=== PATIENT | female | born 1995 | race Caucasian/White ===

== ENCOUNTER 2017-06-06 15:23 | Emergency (ER) | payer OTHER ==
[~2017-06-06] VITALS: Ht 167.6 cm; Wt 64.0 kg
[2017-06-06 16:39] LABS: EOSINOPHIL (%) 0.2 % (0-5); HEMATOCRIT 37.7 % (36.0-46.0); IMMATURE GRANULOCYTE (%) 0.2 % (0.0-0.7); INSTRUMENT ABS NEUTROPHIL CT 2.9 K/uL; MCH 30.8 PG (29.0-34.0); MCV 90.6 FL (83-99); MEAN PLAT.VOLUME 10.2 uM^3 (9.5-12.4); MONOCYTE (%) 7.7 % (3-12); MONOCYTE COUNT 0.3 K/uL (0-0.8); NEUTROPHIL (%) 68.9 % (45-76); NEUTROPHIL COUNT 2.9 K/uL (1.8-6.4); PLATELET COUNT 224 K/uL (156-360); RBC DIS.WIDTH-CV 12.4 % (11.8-14.6); RED BLOOD COUNT 4.16 M/uL (3.80-5.20); WHITE BLOOD COUNT 4.2 K/uL (4.1-10.2)
[2017-06-06 16:47] LABS: CHLORIDE 105 mEq/L (99-109); SODIUM 136 mEq/L (136-147)
[2017-06-06 16:49] LABS: GLUCOSE 86 mg/dL (70-99)
[2017-06-06 16:50] LABS: ANION GAP 11 MEQ/L (2-14)
[2017-06-06 16:52] LABS: GFR ESTIMATE (CALCULATED) > 59 mL/min/
[2017-06-06 16:53] LABS: UREA NITROGEN (BUN) 7 mg/dL (9-23)
[2017-06-06 17:00] LABS: QUANTITATIVE HCG < 4.0 MIU/ML
[2017-06-06 18:36] VITALS: BP 117/79
== END 2017-06-06 18:37 | disposition home or self-care (01) ==
LOC: EME 15:23
PROVIDERS: Physician Assistant
DX: R07.9 Chest pain, unspecified (principal); H53.8 Other visual disturbances; R53.1 Weakness; R23.1 Pallor; R23.0 Cyanosis
CPT/HCPCS: 71020; 80048; 81003; 84443; 84702; 85025; 93005; 99281; 99284